=== PATIENT | female | born 1960 | race Native Hawaiian/Other Pacific Islander ===

== ENCOUNTER 2017-04-17 07:36 | Day surgery (SDC) | payer OTHER ==
[2017-04-04 07:21] VITALS: BMI 29.4
--- NOTE | 2017-04-17 12:07 | PROCN ---
DATE: 04/17/2017 PROCEDURE: Tilt table test. REFERRING PHYSICIAN: Dr. Wills. CASE FILLER: Dr. Wills. INDICATIONS: Recurrent dizziness. After an informed consent, the patient was put on the tilt table and prepped in the usual fashion. T he tilt table was put on 30 degrees for 5 minute and was advanced to 60 degrees for another 15 minute s. The patient tolerated the procedure well. The patient finished the test without any symptoms. IMPRESSION: Normal tilt table test. Appropriate heart rate and blood pressure response to tilt tabl e test. The patient remains asymptomatic throughout the test. Bess Wills MD cc: [id number] TT: 04/17/2017 09:03:36 Confirmation # [id number] Dictation # [id number]
== END 2017-04-17 10:00 | disposition home or self-care (01) ==
LOC: C.CATHLAB 07:36
PROVIDERS: ATTEND Internal Medicine
DX: R42 Dizziness and giddiness (principal)

== ENCOUNTER 2019-02-12 10:14 | Outpatient (CLI) | payer OTHER | END 2019-02-12 10:15 | disposition home or self-care (01) | LOC: C.MAMMO 10:14 | DX: R92.1 Mammographic calcification found on diagnostic imaging of breast (principal) ==